=== PATIENT | female | born 2000 | race Caucasian/White ===

== ENCOUNTER 2021-01-05 22:50 | Outpatient (CLI) | payer MEDICAID, SELFPAY ==
[2021-01-05 23:06] VITALS: BP 122/76; PULSE 105; PULSE 110; TEMP 36.9; O2SAT 97; O2SAT 98
[2021-01-05 23:30] VITALS: BMI 28.8
[2021-01-05 23:40] VITALS: BP 110/66; PULSE 98; TEMP 36.7; O2SAT 98
[2021-01-06 00:07] LABS: Color, Urine Yellow (Yellow); Glucose, Dipstick Normal (Normal); Ketone-Dipstick Negative (Negative); Leukocyte Esterase-Dipstick 500 /ul (Negative); Nitrite-Dipstick Negative (Negative); Occult Blood-Urine 250 /ul (Negative); Protein-Dipstick 15 mg/dl (Negative); Urine Bilirubin Dipstick Negative (Negative); Urine Clarity Clear (Clear); Urine Urobilinogen Normal (Normal)
--- NOTE | 2021-01-12 07:33 | OB.TRI.NOTE ---
HPI - General HPI Narrative JUAN J WALKER, is a 20 F who presents w/ c/o vaginal bleeding. Denies trauma. No active bleeding when arried. Denies LOF. Good FM. Maternal Data Information Final KRISTEN: 04/22/21 Gestational age: 24 5/7 PFSH PFSH Home Medications metronidazole [Flagyl] 500 mg PO BID 01/05/21 [History Last Taken 01/05/21 08:00] ondansetron HCl [Zofran] 4 mg PO Q8H 01/05/21 [History Last Taken 01/05/21 14:00] terconazole 0.4 applic VAGINAL DAILY 01/05/21 [History Last Taken 01/04/21 21:00] Allergy/AdvReac Type Severity Reaction Status Date / Time No Known Allergies Allergy Verified 01/05/21 23:35 NST FHR Rate Baby A Baseline: 150 Variability:: Moderate Accelerations:: 10 x 10 Decelerations:: None NST Reactive:: Appropriate for gestational age FHR Category:: Category I Uterine Activity:: quiet Assessment & Plan (1) 24 weeks gestation of : (2) Primigravida: QUALIFIERS: Trimester: second trimester Qualified Code(s): Z34.02 - Encounter for supervision of normal first , second trimester (3) Vaginal bleeding during , antepartum: COMMENT: No evidence of vaginal bleeding after arrival. No contractions. No history of previa.Blood type is a positive. Patient discharged home with pelvic rest. Follow-up with your provider as scheduled or as needed.
== END 2021-01-06 00:40 | disposition home or self-care (01) ==
LOC: WPOUT 23:00 → WP 23:01
PROVIDERS: Visit Provider Obstetrics & Gynecology
DX: O46.92 Antepartum hemorrhage, unspecified, second trimester (principal); Z3A.24 24 weeks gestation of pregnancy; Z79.899 Other long term (current) drug therapy
CPT/HCPCS: 59050; 81002